=== PATIENT | female | born 1990 | race African-American/Black ===

== ENCOUNTER 2018-05-01 12:06 | Emergency (ER) | payer SELFPAY ==
[~2018-05-01] VITALS: Ht 160 cm; Wt 77.1 kg
[2018-05-01 12:12] VITALS: Ht 160 cm; Wt 77.1 kg
[2018-05-01 12:39] VITALS: BP 123/78
== END 2018-05-01 12:40 | disposition home or self-care (01) ==
LOC: ED 12:06
DX: J06.9 Acute upper respiratory infection, unspecified (principal)